=== PATIENT | female | born 1975 | race Caucasian/White ===

== ENCOUNTER 2021-06-02 21:09 | Emergency (ER) | payer BC ==
[~2021-06-02] VITALS: Ht 167.6 cm; Wt 75.7 kg
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
[2021-06-02] MEDS ORDERED: ONDANSETRON HCL/PF 4 MG/2 ML VIAL ONE (22:15)
[2021-06-02] MEDS ORDERED: ONDANSETRON 4 MG TAB.RAPDIS ONE (22:19)
[2021-06-02] MEDS: ONDANSETRON HCL 4 MG/5 ML SOLUTION PO ONE ×2 (22:23→22:39)
[2021-06-02] MEDS ORDERED: ONDANSETRON HCL/PF 4 MG/2 ML VIAL IVP ONE (22:30)
--- NOTE | 2021-06-02 22:44 | NUR ---
PATIENT TAKEN FOR CT AND XR
--- NOTE | 2021-06-02 22:52 | NUR ---
PATIENT BACK TO BED 4 FROM RADIOLOGY
[2021-06-02] MEDS ORDERED: ONDANSETRON 4 MG TAB.RAPDIS PO ONE (23:00)
--- NOTE | 2021-06-03 00:55 | NUR ---
Patient discharged to home in stable condition. Written and verbal after care instructions given. Patient verbalizes understanding of instruction.
[2021-06-03 00:59] VITALS: BP 106/69
== END 2021-06-03 01:06 | disposition home or self-care (01) ==
LOC: ER 21:23
DX: S16.1XXA Strain of muscle, fascia and tendon at neck level, initial encounter (principal); M25.552 Pain in left hip; V49.59XA Passenger injured in collision with other motor vehicles in traffic accident, initial encounter; Y93.89 Activity, other specified; Y92.413 State road as the place of occurrence of the external cause; Y99.8 Other external cause status
CPT/HCPCS: 70450; 72125; 73503; 99284; Q0162; 73502; J2405

== ENCOUNTER 2021-07-24 14:21 | Emergency (ER) | payer BC ==
[~2021-07-24] VITALS: Ht 165.1 cm; Wt 72.6 kg
[2021-07-24 14:25] VITALS: BP 118/75
[2021-07-24] MEDS ORDERED: NAPR-1192 PO (14:57)
== END 2021-07-24 15:10 | disposition home or self-care (01) ==
LOC: ER 14:21
DX: S00.81XA Abrasion of other part of head, initial encounter (principal); M25.531 Pain in right wrist; Z79.1 Long term (current) use of non-steroidal anti-inflammatories (NSAID); W18.30XA Fall on same level, unspecified, initial encounter; Y93.89 Activity, other specified; Y92.89 Other specified places as the place of occurrence of the external cause; Y99.8 Other external cause status